=== PATIENT | male | born 1985 | race Two or more races ===

== ENCOUNTER 2025-05-21 11:36 | Emergency (ER) | payer MEDICAID ==
[~2025-05-21] VITALS: Ht 180.3 cm; Wt 100.0 kg
[2025-05-21 11:42] VITALS: O2SAT 99
[2025-05-21] MEDS ORDERED: KETOROLAC 15MG/ML VIAL IM ONE (12:30)
[2025-05-21] MEDS: LIDOCAINE 5% PATCH TOP SCH (12:37)
[2025-05-21] MEDS: KETOROLAC 15MG/ML VIAL IM NR (12:37)
[2025-05-21] MEDS ORDERED: IBUP-2028 MT (13:53)
[2025-05-21] MEDS ORDERED: LIDO700A30 TP (13:53)
[2025-05-21 14:04] VITALS: BP 111/64; PULSE 82; RESP 18; TEMP 36.7; O2SAT 100
== END 2025-05-21 14:05 | disposition home or self-care (01) ==
LOC: ER 11:36
DX: S39.012A Strain of muscle, fascia and tendon of lower back, initial encounter (principal); Z79.899 Other long term (current) drug therapy; X58.XXXA Exposure to other specified factors, initial encounter; Y93.89 Activity, other specified; Y92.89 Other specified places as the place of occurrence of the external cause; Y99.8 Other external cause status
CPT/HCPCS: 99283; 72100; 96372; J1885